=== PATIENT | male | born 1940 | race Caucasian/White ===

== ENCOUNTER → 2023-08-13 10:59 | Outpatient (BNVA) | payer MEDICARE, OTHER, SELFPAY | PROVIDERS: Family Provider Surgery; PCP Surgery; Visit Provider Nurse Practitioner | DX: R39.9 Unspecified symptoms and signs involving the genitourinary system (principal) | CPT/HCPCS: 81000 ==

== ENCOUNTER → 2024-01-18 09:44 | Outpatient (BNVA) | payer MEDICARE, OTHER, SELFPAY | PROVIDERS: Family Provider Surgery; PCP Surgery; Visit Provider Family Medicine Adult Medicine | DX: N39.0 Urinary tract infection, site not specified (principal) | CPT/HCPCS: 81000 ==

== ENCOUNTER → 2024-11-14 09:19 | Outpatient (BNVA) | payer MEDICARE, OTHER, SELFPAY | PROVIDERS: Family Provider Family Medicine; PCP Family Medicine; Visit Provider Internal Medicine | DX: R07.9 Chest pain, unspecified (principal) | CPT/HCPCS: 93005; 99204 ==

== ENCOUNTER 2024-11-25 10:38 | Outpatient (CLI) | payer MEDICARE, OTHER, SELFPAY ==
--- NOTE | 2024-11-25 10:30 | USCV_ITS ---
Leonardo Rivera Age: 84 Gender: M : 1940 Exam Date: 11/25/2024 11:00 Ordering Phys: Lm Parker M.D ([email or web address]) Technologist: DERRELL [place] [facility] [place]: CAD Risk Factors: Previous Vascular Surgery: Right Brachial BP: / Left Brachial BP: / Right Left Velocity (cm/s) Spectral Plaque Velocity (cm/s) Spectral Plaque Syst/Diast Broadening Syst/Diast Broadening 52.60/ 11.70 Prox CCA 82.00 / 19.20 58.00/ 18.20 Mid CCA 108.80/ 23.40 51.20/ 16.40 Distal CCA 84.20 / 30.50 45.50/ 14.70 Prox ICA 134.40/ 35.40 70.90/ 20.70 Mid ICA 103.40/ 26.30 72.60/ 21.10 Distal ICA 74.60 / 20.00 51.10 ECA 189.80 0.90 ICA/CCA 1.60 Antegrade Vertebral Antegrade 63.30/ 17.60 cm/s 48.90/ 15.20 cm/s Tri Subclavian Tri 241.9 161.2 0 0 FINDINGS Comparison: none available. Mixture of calcified and noncalcified plaque in the bifurcations. Mild elevation of left ICA velocity due to plaque. Antegrade vertebral arteries. CONCLUSIONS Bilateral ICA stenosis less than 50%. Left ICA stenosis near 50%. Dr. Kristyn Velazquez DO (Electronically Signed) Final Date: 25 November 2024 14:10 S
== END 2024-11-25 10:39 | disposition home or self-care (01) ==
LOC: RAD 10:39
PROVIDERS: Family Provider Family Medicine; PCP Family Medicine; Visit Provider Internal Medicine
DX: I77.9 Disorder of arteries and arterioles, unspecified (principal); I65.23 Occlusion and stenosis of bilateral carotid arteries
CPT/HCPCS: 93880

== ENCOUNTER 2024-11-26 07:56 | Outpatient (CLI) | payer MEDICARE, OTHER, SELFPAY ==
[2024-11-26 08:09] VITALS: BMI 28.3
--- NOTE | 2024-11-26 08:11 | ECG_ITS ---
[facility]: 2024-[facility]26 Pat Name: Leonardo Rivera Department: Room: Gender: Male Business Support Coordinator: : 1940 Requested By: Lm Parker Order Number: [id number] Danica MD: ROCKY FRANCIS Interpretive Statements Lung unchanged pre/post procedure; Intraprocedure shortess of breath; Symptoms resoled by discharge NOTE: Please note that this is the electrocardiogram portion of the Lexiscan/Sestamibi stress test. The perfusion scan will be documented separately. DATA: Baseline heart rate was 66 beats per minute. Baseline blood pressure was 187/99 millimeters of mercury. Target heart rate was 134. Maximum heart rate achieved was 73. which was 54 % of the predicted target heart rate. Maximum blood pressure was 187/99 millimeters of mercury. The reason for ending the test was completion of the protocol. The patient did not experience any symptoms. ELECTROCARDIOGRAM: BASELINE: Sinus rhythm. Normal axis. Left ventricular hypertrophy with repolarization abnormality, otherwise, no ST-T changes suggestive of ischemia noted. No arrhythmia noted. EXERCISE: After Lexiscan injection, no ST-T changes suggestive of ischemic noted. No arrhythmia noted. CONCLUSION: Please note due to baseline abnormality of the EKG specificity and sensitivity of the EKG portion of LexiScan MIBI stress test will be low 1. EKG not suggestive of ischemia 2. Lexiscan injection unremarkable. 3. Perfusion scan will be documented separately. Electronically Signed On 01-04-2025 20:33:48 CDT by ROCKY FRANCIS [email or web address]
--- NOTE | 2024-11-26 08:11 | NMCV_ITS ---
NM minda perf SPECT r/s* [id number] Leonardo Rivera Age: 84 Gender: M : 1940 Exam Date: 11/26/2024 08:57 Ordering Phys: Lm Parker M.D ([email or web address]) Technologist: EDELMIRA Saxena Exam Location: [facility] Indications: cp STRESS TEST Please see separate stress test report in [facility] for full findings IMAGE PROTOCOL Rest/Stress 1 Lexiscan Day Radiopharmaceutical Dose (mCi) Administration Site Administered by Rest: Tc-99m 10.5 IV Deb Callahan MANAGER DELIVERY Sestamibi Stress:Tc-99m 33 IV Deb Callahan, MANAGER DELIVERY Sestamibi Rest: 26-Nov-2024 60 Discovery 630 Stress: 26-Nov-2024 30 Discovery 630 0.4mg Lexiscan. Images obtained in supine and prone position. SPECT RESULTS Technical Quality: Good Raw Data Analysis: Normal Image Corrections: No attenuation or motion correction applied Summed Stress Score: 6 Summed Rest Score: 3 Summed Difference Score: 4 PERFUSION FINDINGS Small area of fixed perfusion defect noted in the distal inferior apical region with mild reversibility in the absence of significant wall motion abnormality most likely represent artifact. There is a possibility of very distal RCA lesion which is less than 5% of the myocardium. FUNCTIONAL RESULTS (calculated via Gated SPECT) Stress Image LV EF (%): 71 Stress EDV (mL):80 TID: 1.13 Stress ESV (mL):23 FUNCTIONAL FINDINGS: There is normal left ventricular systolic function. IMPRESSIONS No significant ischemia noted based upon the study cannot rule out old myocardial infarction in inferior apical region most likely representing very distal RCA territory which is less than 5% of the myocardium. Marlyn Fish MD (Electronically Signed) Final Date: 26 November 2024 22:12 S
[2024-11-26] MEDS: regadenoson 0.4 Mg/5 ml Syringe IVP (09:20)
[2024-11-26 09:38] VITALS: BP 179/80; PULSE 69
== END 2024-11-26 07:57 | disposition home or self-care (01) ==
LOC: CDL 07:57
PROVIDERS: PCP Family Medicine; Visit Provider Internal Medicine
DX: R07.9 Chest pain, unspecified (principal); R06.02 Shortness of breath; R93.1 Abnormal findings on diagnostic imaging of heart and coronary circulation
CPT/HCPCS: 36415; 78452; 93017; 96374; A9500; J2785

== ENCOUNTER → 2025-03-05 14:20 | Outpatient (BNVA) | payer MEDICARE, OTHER, SELFPAY | PROVIDERS: PCP Family Medicine; Visit Provider Family Medicine | DX: I10 Essential (primary) hypertension (principal); I25.10 Atherosclerotic heart disease of native coronary artery without angina pectoris; R73.03 Prediabetes; N18.31 Chronic kidney disease, stage 3a; E78.2 Mixed hyperlipidemia | CPT/HCPCS: 80053; 80061; 82607; 83036; 83540; 84443; 85025 ==

== ENCOUNTER → 2025-05-07 13:30 | Outpatient (BNVA) | payer MEDICARE, OTHER, SELFPAY | PROVIDERS: PCP Family Medicine; Visit Provider Internal Medicine | DX: I25.10 Atherosclerotic heart disease of native coronary artery without angina pectoris (principal); I73.9 Peripheral vascular disease, unspecified; I77.9 Disorder of arteries and arterioles, unspecified; I12.9 Hypertensive chronic kidney disease with stage 1 through stage 4 chronic kidney disease, or unspecified chronic kidney disease; N18.31 Chronic kidney disease, stage 3a; Z79.82 Long term (current) use of aspirin; Z95.1 Presence of aortocoronary bypass graft; Z87.891 Personal history of nicotine dependence; I25.2 Old myocardial infarction; R01.1 Cardiac murmur, unspecified; I10 Essential (primary) hypertension; E78.2 Mixed hyperlipidemia; I65.23 Occlusion and stenosis of bilateral carotid arteries | CPT/HCPCS: 36415; 80048; 83880; 99214 ==

== ENCOUNTER 2025-06-05 08:40 | Outpatient (CLI) | payer MEDICARE, OTHER, SELFPAY ==
--- NOTE | 2025-06-05 07:00 | USCV_ITS ---
Leonardo Rivera Age: 85 Gender: M : 1940 Exam Date: 06/05/2025 09:33 Ordering Phys: Lm Parker M.D ([email or web address]) Technologist: Aden Martinez Exam Location: [facility] [place] Indication: murmur BP: 120 / 68 HR: 52 Rhythm: Sinus Technical Quality: Adequate MEASUREMENTS (Male / Female) Normal Values 2D ECHO LV Diastolic Diameter PLAX 4.4 cm 4.2 - 5.9 / 3.9 - 5.3 cm IVS Diastolic Thickness 0.8 cm 0.6 - 1.0 / 0.6 - 0.9 cm IVS Systolic Thickness 0.9 cm LVPW Diastolic Thickness 0.7 cm 0.6 - 1.0 / 0.6 - 0.9 cm LVPW Systolic Thickness 1.2 cm LVOT Diameter 2.0 cm LV Ejection Fraction 2D Teich 55.9 % LV Ejection Fraction MOD 4C 61.3 % LV Ejection Fraction MOD 2C 66.4 % LV Ejection Fraction 2C AL 66.5 % LA Diameter 3.9 cm RA Systolic Volume 4C AL 50.6 ml RA Systolic Volume 4C MOD 53.3 ml LA Sys Volume AL 62.8 cm cubed LA Sys Volume Index AL 34.8 cm cubed/m squared Aorta at Sinotubular Diameter 2.0 cm IVC Diameter 1.7 cm M-MODE LA Ao Ratio MM 1.2 AV Cusp Separation MM 2.0 cm DOPPLER AV Peak Velocity 122.0 cm/s LVOT Peak Velocity 89.0 cm/s AV Area Cont Eq vti 2.7 cm squared AV Area Cont Eq pk 2.4 cm squared MV Peak Velocity 97.0 cm/s MV Area PHT 3.7 cm squared Mitral E to A Ratio 0.9 TV Peak Velocity 361.0 cm/s TR Peak Velocity 377.0 cm/s TR Peak Gradient 56.9 mmHg TR Mean Velocity 294.0 cm/s TR Mean Gradient 36.9 mmHg TR Velocity Time Integral 107.9 cm PV Peak Velocity 99.7 cm/s RV Ejection Time 0.3 s FINDINGS Left Ventricle Normal left ventricular size and systolic function, EF 60-65%. No regional wall motion abnormalities. Right Ventricle Normal in size and function Right Atrium Normal right atrial size. Left Atrium Normal in size Mitral Valve Structurally normal mitral valve. Mild mitral regurgitation. Aortic Valve Thickened aortic valve. No significant stenosis. Mild aortic regurgitation Tricuspid Valve Mild tricuspid regurgitation. Pulmonary artery systolic pressure is normal Pulmonic Valve Mild pulmonic regurgitation. Pericardium Normal Aorta Normal in size IVC Appears to be normal CONCLUSIONS LV systolic function is normal with EF of 60-65% Mild mitral regurgitation Mild aortic regurgitation Mild tricuspid regurgitation Mild pulmonic regurgitation Lm Parker MD (Electronically Signed) Final Date: 17 June 2025 10:12 S
== END 2025-06-05 08:41 | disposition home or self-care (01) ==
LOC: RAD 08:41
PROVIDERS: PCP Family Medicine; Visit Provider Internal Medicine
DX: R01.1 Cardiac murmur, unspecified (principal); I34.0 Nonrheumatic mitral (valve) insufficiency; I36.1 Nonrheumatic tricuspid (valve) insufficiency; I37.1 Nonrheumatic pulmonary valve insufficiency
CPT/HCPCS: 93306